=== PATIENT | female | born 1960 | race Caucasian/White ===

== ENCOUNTER → 2023-05-25 16:54 | Outpatient (REF) | payer MEDICARE, SELFPAY | LOC: MRI 3T 16:54 | PROVIDERS: ATTENDING PHYSICIAN Nurse Practitioner Family; FAMILY PHYSICIAN Family Medicine; REFERRING PHYSICIAN Surgery Plastic and Reconstructive Surgery | DX: Z45.819 Encounter for adjustment or removal of unspecified breast implant (principal) | CPT/HCPCS: 77047; C8937 ==

== ENCOUNTER → 2024-04-16 07:36 | Outpatient (REF) | payer MEDICARE, SELFPAY | LOC: RAD 07:36 | PROVIDERS: ATTENDING PHYSICIAN Physical Medicine & Rehabilitation | DX: Z78.0 Asymptomatic menopausal state (principal) | CPT/HCPCS: 77080 ==